=== PATIENT | female | born 1960 | race Hispanic/Latino ===

== ENCOUNTER 2018-11-14 15:48 | Inpatient (IN) | payer OTHER ==
--- NOTE | 2018-11-14 16:37 | ED PDOC ---
Arrival/HPI - General Chief Complaint: Palpitations Time Seen by Provider: 11/14/18 16:32 Historian: Patient - History of Present Illness Narrative History of Present Illness (Text): 11/14/18 16:35 58yo female with no significant pmhx who was referred to ED by her PMD for palpitation. Patient states she has been having palpitation intermittently for few weeks now and finally saw her PMD today who referred her to ED for further evaluation. Notes intermittent lightheadedness with the palpitation. Denies chest pain, SOB, diaphoresis, back pain, abdominal pain, nausea, vomiting, focal weakness, any other complaint. Past Medical History - Provider Review Nursing Documentation Reviewed: Yes - Psychiatric Hx Substance Use: No - Anesthesia Hx Anesthesia: No Hx Anesthesia Reactions: No Hx Malignant Hyperthermia: No Family/Social History - Physician Review Nursing Documentation Reviewed: Yes Family/Social History: Unknown Family HX Smoking Status: Never Smoked Hx Alcohol Use: No Hx Substance Use: No Allergies/Home Meds Allergies/Adverse Reactions: Allergies No Known Allergies Allergy (Verified 11/14/18 15:57) Review of Systems - Physician Review All systems were reviewed & negative as marked: Yes - Review of Systems Constitutional: Normal Eyes: Normal ENT: Normal Respiratory: Normal Cardiovascular: Palpitations. absent: Chest Pain Gastrointestinal: Normal Genitourinary Female: Normal Musculoskeletal: Normal Skin: Normal Neurological: Normal Endocrine: Normal Hemo/Lymphatic: Normal Psychiatric: Normal Physical Exam Vital Signs Reviewed: Yes Temperature: Afebrile Blood Pressure: Normal Pulse: Tachycardic Respiratory Rate: Normal Appearance: Positive for: Well-Appearing, Non-Toxic, Comfortable Pain Distress: None Mental Status: Positive for: Alert and Oriented X 3 - Systems Exam Head: Present: Atraumatic, Normocephalic Pupils: Present: PERRL Extroacular Muscles: Present: EOMI Conjunctiva: Present: Normal Mouth: Present: Moist Mucous Membranes Neck: Present: Normal Range of Motion Respiratory/Chest: Present: Clear to Auscultation, Good Air Exchange. No: Respiratory Distress, Accessory Muscle Use Cardiovascular: Present: Regular Rate and Rhythm, Normal S1, S2, Tachycardic. No: Murmurs, Irregular Rhythm, Peripheal Pulses Present Abdomen: No: Tenderness, Distention, Peritoneal Signs Back: Present: Normal Inspection Upper Extremity: Present: Normal Inspection. No: Cyanosis, Edema Lower Extremity: Present: Normal Inspection. No: Edema Neurological: Present: GCS=15, CN II-XII Intact, Speech Normal Skin: Present: Warm, Dry, Normal Color. No: Rashes Psychiatric: Present: Alert, Oriented x 3, Normal Insight, Normal Concentration Medical Decision Making ED Course and Treatment: 11/14/18 17:21 58yo female referred to ED by her PMD for palpitation x weeks. Labs EKG chest xray Chest IMPRESSION: No active disease. EKG Afib with PVC @ 145bpm 2nd EKG s/p Cardizem afib with PVC @ 87bpm Labs was reviewed and Troponin was 0.03. Leuk was noted without elevated WBC in her UA. This is incidental finding and pt does not have UTI symptoms. Will not treat for UTI at this time. ASA 325mg ordered 11/14/18 17:[address] Kemp and pt was admitted. He requested Dr. Gallardo consult. Result and plan was DW the pt and she agreed - Medication Orders Current Medication Orders: Diltiazem HCl (Cardizem) 20 mg IVP STAT STA Stop: 11/14/18 16:31 Disposition/Present on Arrival - Present on Arrival Any Indicators Present on Arrival: No History of DVT/PE: No History of Uncontrolled Diabetes: No Urinary Catheter: No History of Decub. Ulcer: No History Surgical Site Infection Following: None - Disposition Have Diagnosis and Disposition been Completed?: Yes Diagnosis: New onset a-fib Disposition: HOSPITALIZED Disposition Time: 17:30 Patient Plan: Admission Patient Problems: Current Active Problems Problem Status Onset New onset a-fib Acute Condition: FAIR Forms: [employer] (Welsh)
[2018-11-14 16:39] LABS: BASO # 0.06 K/mm3 (0.0-2.0); BASO % 0.7 % (0.0-3.0); EOS # 0.2 (0.0-0.7); GRAN # 5.17 (1.4-6.5); GRAN % 56.3 % (50.0-68.0); HEMOGLOBIN 13.9 g/dL (12.0-16.0); LYMPH # 3.2 (1.2-3.4); LYMPH % 34.5 % (22.0-35.0); MEAN CELL VOLUME 89.5 fl (80.0-105.0); MEAN CORPUSCULAR HEMOGLOBIN 29.3 pg (25.0-35.0); MEAN CORPUSCULAR HGB CONC 32.7 g/dl (31.0-37.0); MEAN PLATELET VOLUME 9.9 fl (7.0-11.0); MONO # 0.6 (0.1-0.6); MONO % 6.5 % (1.0-6.0); RBC 4.75 10^6/uL (3.5-6.1); RED CELL DISTRIBUTION WIDTH 13.3 % (11.5-14.5); WHITE BLOOD COUNT 9.2 10^3/uL (4.5-11.0)
[2018-11-14 16:41] LABS: URINE BILIRUBIN NEGATIVE (NEGATIVE); URINE BLOOD NEGATIVE (NEGATIVE); URINE GLUCOSE (UA) NEGATIVE (NEGATIVE); URINE LEUKOCYTE ESTERASE MODERATE Leu/uL (NEGATIVE); URINE PROTEIN NEGATIVE mg/dL (<30 mg/dL); URINE UROBILINOGEN 0.2 E.U./dL (<1 E.U./dL)
[2018-11-14 16:43] LABS: URINE APPEARANCE CLEAR (CLEAR); URINE COLOR YELLOW (YELLOW)
[2018-11-14 16:44] LABS: INR 0.85; PARTIAL THROMBOPLASTIN TIME 30.6 Seconds (25.1-36.5)
[2018-11-14 16:48] LABS: PROTHROMBIN TIME 9.7 SECONDS (9.4-12.5)
[2018-11-14 16:52] LABS: TROPONIN I 0.03 ng/mL
[2018-11-14 17:00] LABS: ALB/GLOB RATIO 1.5 (1.1-1.8); ALBUMIN 4.3 g/dL (3.0-4.8); ALT/SGPT 31 U/L (7-56); AST/SGOT 28 U/L (14-36); BLOOD UREA NITROGEN 22 mg/dL (7-21); GFR NON-AFRICAN AMERICAN 57
[2018-11-14 17:05] LABS: URINE BACTERIA SMALL /hpf
--- NOTE | 2018-11-14 17:14 | RAD ---
Date of service: 11/14/2018 HISTORY: admission COMPARISON: No prior. FINDINGS: LUNGS: No active pulmonary disease. PLEURA: No significant pleural effusion identified, no pneumothorax apparent. CARDIOVASCULAR: No atherosclerotic calcification present Cardiomegaly. No evidence of acute, significant cardiovascular disease. OSSEOUS STRUCTURES: No significant abnormalities.Incidental finding(s): Thoracolumbar scoliosis. VISUALIZED UPPER ABDOMEN: Normal. OTHER FINDINGS: None. IMPRESSION: No active disease.
[2018-11-14 17:42] LABS: FREE T4 0.97 ng/dL (0.78-2.19)
--- NOTE | 2018-11-14 19:46 | CARD ---
APPROVED REPORT Date of service: 11/14/2018 EKG Measurement Heart [id number] <Conclusion> Atrial fibrillation with premature ventricular or aberrantly conducted complexes Abnormal ECG
--- NOTE | 2018-11-14 19:49 | CARD ---
APPROVED REPORT Date of service: 11/14/2018 EKG Measurement Heart [id number] <Conclusion> Atrial fibrillation with rapid ventricular response Nonspecific T wave abnormality, probably digitalis effect Abnormal ECG
[2018-11-14] MEDS: Sodium Chloride 0.9% 1,000 ML IV SCH (21:01)
--- NOTE | 2018-11-14 21:36 | HP ---
DATE OF EXAM: 11/14/2018 HISTORY OF PRESENT ILLNESS: The patient is a 58-year-old white female currently in the emergency room in a 600 bed. She was seen in the office and sent to the emergency room for admission for probable atrial fibrillation with a heart rate of 140 beats per minute. The patient has been complaining of palpitation for several weeks. She has had no chest pain. No diaphoresis. No shortness of breath. Occasional periods of lightheadedness were the only complaints. PAST MEDICAL HISTORY: Unremarkable. FAMILY HISTORY: Noncontributory. SOCIAL HISTORY: Does not smoke or use alcoholic beverages. ALLERGIES: NO KNOWN ALLERGIES. REVIEW OF SYSTEMS: Entirely unremarkable except for the complaint of palpitations. PHYSICAL EXAMINATION: VITAL SIGNS: Currently pulse rate of 92 beats per minute, it essentially was 137 beats per minute. Her blood pressure is 113/73, respirations 18 breaths per minute with 98% O2 saturation on room air. HEENT: PERRLA, EOMI. No icterus is present. NECK: Supple with full range of motion. No JVD or bruits are appreciated. LUNGS: Clear to auscultation and percussion bilaterally. HEART: Irregularly irregular. No murmurs, rubs or gallops are appreciated. ABDOMEN: Soft. It is nontender. There is no organomegaly. Bowel sounds are normoactive. EXTREMITIES: Show no deformities or edema with a full range of motion of all extremities. NEUROLOGIC: The patient is intact. There are no focal motor deficits. LABORATORY DATA: WBC is entirely within normal limits with a hemoglobin of 13.9 and hematocrit of 42.5. Coag profile is normal. Chemistry is entirely within normal limits with the exception of a BUN of 22, TSH is 2.92 with a free T4 of 0.97. Urinalysis is normal with a possible urinary tract infection. IMPRESSION AND PLAN: At the time of admission is atrial fibrillation with rapid ventricular response. This has been controlled in the emergency room. Chest x-ray was perfectly normal. EKG, atrial fibrillation with premature ventricular contractions or aberrantly conducted complexes, heart rate 87. We will consult Dr. Chadd Gallardo. The patient is on a diltiazem drip. Continue current medicines. Jaron Kemp MD [facility] # [id number]
[2018-11-14] MEDS ORDERED: diltiaZEM IVPB 100mg in NS 100 ML IV PRN (21:53)
[2018-11-15] MEDS: Enoxaparin 80 mg Syringe SC SCH ×2 (01:23→10:36)
[2018-11-15 06:01] VITALS: O2SAT 99
[2018-11-15] MEDS: Sodium Chloride 0.9% 1,000 ML IV SCH (06:50)
[2018-11-15 07:51] LABS: BASO # 0.06 K/mm3 (0.0-2.0); BASO % 0.8 % (0.0-3.0); EOS # 0.3 (0.0-0.7); EOS % 3.9 % (1.5-5.0); GRAN # 3.09 (1.4-6.5); GRAN % 39.2 % (50.0-68.0); HEMOGLOBIN 12.4 g/dL (12.0-16.0); LYMPH # 3.9 (1.2-3.4); LYMPH % 48.9 % (22.0-35.0); MEAN CELL VOLUME 88.2 fl (80.0-105.0); MEAN CORPUSCULAR HEMOGLOBIN 28.8 pg (25.0-35.0); MEAN CORPUSCULAR HGB CONC 32.6 g/dl (31.0-37.0); MEAN PLATELET VOLUME 9.8 fl (7.0-11.0); MONO # 0.6 (0.1-0.6); MONO % 7.2 % (1.0-6.0); RBC 4.31 10^6/uL (3.5-6.1); RED CELL DISTRIBUTION WIDTH 13.2 % (11.5-14.5); WHITE BLOOD COUNT 7.9 10^3/uL (4.5-11.0)
[2018-11-15 08:41] LABS: ALB/GLOB RATIO 1.4 (1.1-1.8); ALBUMIN 3.5 g/dL (3.0-4.8); ALT/SGPT 24 U/L (7-56); AST/SGOT 23 U/L (14-36); BLOOD UREA NITROGEN 20 mg/dL (7-21); GFR NON-AFRICAN AMERICAN > 60
--- NOTE | 2018-11-15 08:52 | PN ---
SUBJECTIVE: The patient was seen and examined at bedside on the telemetry villar. No acute events overnight. She remains afebrile and hemodynamically stable. She denies chest pain or dyspnea, reports resolution of her palpitations and overall offers no complaints. OBJECTIVE: VITAL SIGNS: Temperature 97.9, pulse 81, blood pressure 94/56, respiratory rate 18, oxygen saturation 99% on room air. GENERAL: No apparent distress. HEENT: PERRL, EOMI. No scleral icterus. No conjunctival pallor. NECK: No JVD, no bruits. LUNGS: Clear to auscultation. CARDIOVASCULAR: Irregularly irregular. No murmurs, rubs or gallops. ABDOMEN: Normoactive bowel sounds. Soft, nontender, nondistended. EXTREMITIES: No edema. NEUROLOGIC: Awake, alert and oriented x 3. No focal motor deficits. LABORATORY DATA: CBC reviewed and unremarkable. CMP pending. Troponin 0.03 x 2 sets. TSH 2.92. ASSESSMENT: The patient is a 58-year-old woman with no significant past medical history who was sent to the ED by her PMD for evaluation of palpitations and was admitted to the telemetry villar for management of new-onset atrial fibrillation. PLAN: 1. Atrial fibrillation, new onset. The patient has been started on a Diltiazem drip and Sotalol 80 mg p.o. b.i.d. and remains rate-controlled. Evaluation with Dr. Gallardo is pending. An echocardiogram is pending. Her CHADS2-VASc score is 1 (for gender) and she remains on Lovenox. 2. Prophylaxis. GI prophylaxis not indicated as the patient is eating. DVT prophylaxis not indicated as the patient remains on Lovenox. CODE STATUS: Full code. Giovanny Kemp MD [facility]
--- NOTE | 2018-11-15 11:30 | CP.PCM.CON ---
History of Present Illness - History of Present Illness History of Present Illness: CONSULT for Dr. Chadd Gallardo Awake, alert, no distress Reason for consultation: Cardiac evaluation of new onset atrial fibrillation Brief history of present illness: A 58 year old female who came in to the ER due to palpitations. She claimed to be having the palpitations intermittently for the past few weeks. She saw her PMD yesterday and was referred to the ER for further evaluation. Denies any other medical problems. Seen and examined by me and Dr. Dias Review of Systems - Review of Systems All systems: reviewed and no additional remarkable complaints except Review of Systems: from HPI Past Patient History - Past Social History Smoking Status: Never Smoked - CARDIAC Hx Cardiac Disorders: No Hx Angina: No Hx Cardia Arrhythmia: No Hx Circulatory Problems: No Hx Congestive Heart Failure: No Hx Heart Murmur: No Hx Heart Transplant: No Hx Hypercholesterolemia: No Hx Hypertension: No Hx Internal Defibrillator: No Hx Mitral Valve Prolapse: No Hx Pacemaker: No Hx Peripheral Edema: No Hx Peripheral Vascular Disease: No - PULMONARY Hx Respiratory Disorders: No Hx Asthma: No Hx Bronchitis: No Hx Chronic Obstructive Pulmonary Disease (COPD): No Hx Emphysema: No Hx Pneumonia: No Hx Respiratory Aspiration: No Hx Respiratory Tract Infection: No Hx Sleep Apnea: No Hx Tuberculosis: No - NEUROLOGICAL Hx Neurological Disorder: No Hx Alzheimer's Disease: No HX Cerebrovascular Accident: No Hx Dementia: No Hx Dizziness: No Hx Meningitis: No Hx Migraine: No Hx Parkinson's Disease: No Hx Seizures: No Hx Transient Ischemic Attacks (TIA): No - HEENT Hx HEENT Problems: No Hx Blind: No Hx Cataracts: No Hx Deafness: No Hx Difficulty Chewing: No Hx Epistaxis: No Hx Glaucoma: No Hx Macular Degeneration: No - RENAL Hx Chronic Kidney Disease: No Hx Dialysis: No Hx Kidney Stones: No Hx Neurogenic Bladder: No Hx Pyelonephritis: No Hx Renal (Kidney) Cancer: No Hx Renal Failure: No - ENDOCRINE/METABOLIC Hx Endocrine Disorders: No Hx Adrenal Cancer: No Hx Diabetes Insipidus: No Hx Diabetes Mellitus Type 1: No Hx Diabetes Mellitus Type 2: No Hx Hyperthyroidism: No Hx Hypothyroidism: No Hx Systemic Lupus Erythematosus: No - HEMATOLOGICAL/ONCOLOGICAL Hx Blood Disorders: No Hx AIDS: No Hx Anemia: No Hx Cancer: No Hx Chemotherapy: No Hx Cirrhosis: No Hx Hemophilia: No Hx Hepatitis A: No Hx Hepatitis B: No Hx Hepatitis C: No Hx Human Immunodeficiency Virus (HIV): No Hx Metastesis: No Hx Shingles: No Hx Sickle Cell Disease: No Hx Unexplained Bleeding: No - INTEGUMENTARY Hx Dermatological Problems: No Hx Basil Cell: No Hx Eczema: No Hx Melanoma: No Hx Psoriasis: No Hx Squamous Cell: No - MUSCULOSKELETAL/RHEUMATOLOGICAL Hx Musculoskeletal Disorders: No Hx Arthritis: No Hx Back Pain: No Hx Degenerative Joint Disease: No Hx Falls: No Hx Fractures: No Hx Gout: No Hx Herniated Disk: No Hx Myasthenia Gravis: No Hx Osteoarthritis: No Hx Osteomyelitis: No Hx Osteoporosis: No Hx Rhabdomyolysis: No Hx Spinal Stenosis: No Hx Unsteady Gait: No - GASTROINTESTINAL Hx Gastrointestinal Disorders: No Hx Colostomy: No Hx Crohn's Disease: No Hx Diverticulitis: No Hx Gall Bladder Disease: No Hx Gastroesophageal Reflux: No Hx Ileostomy: No Hx Liver Failure: No Hx Pancreatitis: No HX Swallowing Problems: No Hx Ulcer: No - GENITOURINARY/GYNECOLOGICAL Hx Genitourinary Disorders: No Hx Hematuria: No Hx Incontinence: No Hx Sexually Transmitted Disorders: No Hx Urinary Tract Infection: No - PSYCHIATRIC Hx Psychophysiologic Disorder: No Hx Anxiety: No Hx Bipolar Disorder: No Hx Depression: No Hx Emotional Abuse: No Hx Hallucinations: No Hx Panic Symptoms: No Hx Paranoia: No Hx Post Traumatic Stress Disorder: No Hx Psychosis: No Hx Physical Abuse: No Hx Schizophrenia: No Hx Sexual Abuse: No Hx Substance Use: No - SURGICAL HISTORY Hx Surgeries: No Hx Amputation: No Hx Appendectomy: No Hx Cardiac Catheterization: No Hx Cholecystectomy: No Hx Coronary Stent: No Hx Gastric Bypass Surgery: No Hx Hysterectomy: No Hx Joint Replacement: No Hx Kidney Transplant: No Hx Liver Transplant: No Hx Mastectomy: No Hx Musculoskeletal Surgery: No Hx Open Heart Surgery: No Hx Orthopedic Surgery: No Hx Splenectomy: No Hx Valve Replacement: No - ANESTHESIA Hx Anesthesia: No Hx Anesthesia Reactions: No Hx Malignant Hyperthermia: No Meds Allergies/Adverse Reactions: Allergies Allergy/AdvReac Type Severity Reaction Status Date / Time No Known Allergies Allergy Verified 11/14/18 15:57 - Medications Medications: Current Medications Enoxaparin Sodium (Lovenox) 67 mg SC Q12H [facility]; Protocol Last Admin: 11/15/18 10:36 Dose: 67 mg Sodium Chloride (Sodium Chloride 0.9%) 1,000 mls @ 100 mls/hr IV .Q10H [facility] Last Admin: 11/15/18 06:50 Dose: Not Given diltiaZEM IVPB 100mg in NS (Cardizem 100mg In Ns) 100 mls @ 5 mls/hr IV .Q20H PRN; Protocol PRN Reason: TITRATE PER MD ORDER Sotalol HCl (Betapace) 80 mg PO BID [facility] Last Admin: 11/15/18 10:36 Dose: Not Given Physical Exam - Constitutional Appears: Non-toxic, No Acute Distress - Head Exam Head Exam: NORMAL INSPECTION, NORMOCEPHALIC - Eye Exam Eye Exam: Normal appearance Pupil Exam: NORMAL ACCOMODATION - ENT Exam ENT Exam: Mucous Membranes Moist, Normal Exam - Respiratory Exam Respiratory Exam: Clear to Auscultation Bilateral, NORMAL BREATHING PATTERN - Cardiovascular Exam Cardiovascular Exam: Irregular Rhythm, +S1, +S2 Additional comments: atrial fibrillation 90's - GI/Abdominal Exam GI & Abdominal Exam: Normal Bowel Sounds, Soft - Extremities Exam Extremities exam: Positive for: full ROM, normal capillary refill - Neurological Exam Neurological exam: Alert, Oriented x3 - Psychiatric Exam Psychiatric exam: Normal Affect, Normal Mood - Skin Skin Exam: Dry, Normal Color, Warm Results - Vital Signs Recent Vital Signs: Last Vital Signs Temp 97.9 F 11/15/18 06:00 Pulse 95 H 11/15/18 06:00 Resp 18 11/15/18 06:00 BP 94/56 L 11/15/18 06:00 Pulse Ox 99 11/15/18 06:00 - Labs Result Diagrams: 11/15/18 07:00 11/15/18 07:00 Labs: Laboratory Results - last 24 hr 11/14/18 11/14/18 11/14/18 16:25 16:25 16:25 WBC 9.2 RBC 4.75 Hgb 13.9 Hct 42.5 MCV 89.5 MCH 29.3 MCHC 32.7 RDW 13.3 Plt Count 316 MPV 9.9 Gran % 56.3 Lymph % (Auto) 34.5 [place] % (Auto) 6.5 H Eos % (Auto) 2.0 Baso % (Auto) 0.7 Gran # 5.17 Lymph # (Auto) 3.2 [place] # (Auto) 0.6 Eos # (Auto) 0.2 Baso # (Auto) 0.06 PT 9.7 INR 0.85 APTT 30.6 Sodium Potassium Chloride Carbon Dioxide Anion Gap BUN Creatinine Est GFR ( Amer) Est GFR (Non-Af Amer) Random Glucose Calcium Magnesium Total Bilirubin AST ALT Alkaline Phosphatase Lactate Dehydrogenase Total Creatine Kinase Troponin I Total Protein Albumin Globulin Albumin/Globulin Ratio Free T4 TSH 3rd Generation Urine Color Yellow Urine Appearance Clear Urine pH 6.0 Ur Specific [place] 1.015 Urine Protein Negative Urine Glucose (UA) Negative Urine Ketones Negative Urine Blood Negative Urine Nitrate Negative Urine Bilirubin Negative Urine Urobilinogen 0.2 Ur Leukocyte Esterase Moderate H Urine RBC 1 - 3 H Urine WBC 2 - 5 Ur Epithelial Cells 3 - 4 Urine Bacteria Small 11/14/18 11/14/18 11/15/18 16:25 17:13 00:10 WBC RBC Hgb Hct MCV MCH MCHC RDW Plt Count MPV Gran % Lymph % (Auto) [place] % (Auto) Eos % (Auto) Baso % (Auto) Gran # Lymph # (Auto) [place] # (Auto) Eos # (Auto) Baso # (Auto) PT INR APTT Sodium 143 Potassium 4.2 Chloride 105 Carbon Dioxide 30 Anion Gap 13 BUN 22 H Creatinine 1.0 Est GFR ( Amer) > 60 Est GFR (Non-Af Amer) 57 Random Glucose 104 Calcium 10.0 Magnesium Total Bilirubin 0.4 AST 28 ALT 31 Alkaline Phosphatase 81 Lactate Dehydrogenase 470 Total Creatine Kinase 61 Troponin I 0.03 0.03 Total Protein 7.2 Albumin 4.3 Globulin 2.8 Albumin/Globulin Ratio 1.5 Free T4 0.97 TSH 3rd Generation 2.92 Urine Color Urine Appearance Urine pH Ur Specific [place] Urine Protein Urine Glucose (UA) Urine Ketones Urine Blood Urine Nitrate Urine Bilirubin Urine Urobilinogen Ur Leukocyte Esterase Urine RBC Urine WBC Ur Epithelial Cells Urine Bacteria 11/15/18 11/15/18 07:00 07:00 WBC 7.9 RBC 4.31 Hgb 12.4 Hct 38.0 MCV 88.2 MCH 28.8 MCHC 32.6 RDW 13.2 Plt Count 270 MPV 9.8 Gran % 39.2 L Lymph % (Auto) 48.9 H [place] % (Auto) 7.2 H Eos % (Auto) 3.9 Baso % (Auto) 0.8 Gran # 3.09 Lymph # (Auto) 3.9 H [place] # (Auto) 0.6 Eos # (Auto) 0.3 Baso # (Auto) 0.06 PT INR APTT Sodium 143 Potassium 3.9 Chloride 110 H Carbon Dioxide 26 Anion Gap 11 BUN 20 Creatinine 0.8 Est GFR ( Amer) > 60 Est GFR (Non-Af Amer) > 60 Random Glucose 95 Calcium 9.0 Magnesium 1.9 Total Bilirubin 0.5 AST 23 ALT 24 Alkaline Phosphatase 62 Lactate Dehydrogenase Total Creatine Kinase Troponin I Total Protein 6.1 Albumin 3.5 Globulin 2.6 Albumin/Globulin Ratio 1.4 Free T4 TSH 3rd Generation Urine Color Urine Appearance Urine pH Ur Specific [place] Urine Protein Urine Glucose (UA) Urine Ketones Urine Blood Urine Nitrate Urine Bilirubin Urine Urobilinogen Ur Leukocyte Esterase Urine RBC Urine WBC Ur Epithelial Cells Urine Bacteria Assessment & Plan - Assessment and Plan (Free Text) Assessment: A 58 year old female who came in to the ER due to palpitations. She claimed to be having the palpitations intermittently for the past few weeks. She saw her PMD yesterday and was referred to the ER for further evaluation. Denies any other medical problems. Dr. Gallardo was called and ordered Cardizem drip at 5 mg /hr however it was not started as systolic blood pressure on the 90's as per RN. Sotalol was started. Will discontinue Cardizem drip and switch to oral. Troponin 0.03 x 2. normal .TSH-normal. Denies chest pain, denies shortness of breath. Echo to evaluate LV function.For stress test . No previous cardiac work up at [facility]. Plan: No distress Systolic Blood pressure on the 90's Cardizem drip order discontinued and switch to oral Switch Lovenox to Eliquis for anticoagulation On Lovenox 67 mg every 12 hours, Sotalol 80 mg BID For echo to evaluate LV function Continue current treatment Continue current medications Lipid profile and HgbA1C Will follow up Further recommendations during hospital course Plan and treatment discussed with Dr. Dias Thank you Dr. Kemp for the opportunity of taking care of Mckenna Cesar for Dr. Gallardo - Date & Time Date: 11/15/18 Time: 06:30
--- NOTE | 2018-11-15 19:42 | CON ---
DATE: 11/15/2018 LOCATION: The patient is in room 268, bed 2. This consult is being done on behalf of Dr. Gallardo who I am covering. Detailed consult has been already dictated by Valeria Martin. This is an additional note pertaining to the same consult. The patient admitted with history of palpitation, found to have atrial fibrillation, rapid ventricular rate. The patient denied any chest pain or shortness of breath. The patient was started on Cardizem drip and Lovenox and sotalol 80 mg b.i.d. The patient now is asymptomatic. PHYSICAL EXAMINATION: LUNGS: Clear. CARDIOPULMONARY: S1 and S2. ABDOMEN: Soft. Nontender. No organomegaly. LABORATORY DATA: Troponin x2 is negative. TSH 2.92. Electrolytes and BUN are normal. Random glucose 104 and 95. EKG showed atrial fibrillation and rapid rate, nonspecific ST-T changes. DIAGNOSIS: Atrial fibrillation, new onset. PLAN: The patient's troponin is negative and we will switch Lovenox to Eliquis 5 mg b.i.d. We will continue sotalol 80 mg b.i.d. With the Cardizem drip, the patient's blood pressure was low, so now we are switching to 30 mg p.o. t.i.d. instead of IV because the heart rate has come down. We will continue to follow closely with you. Echo done today, we will follow that report. Meseret Dias MD
--- NOTE | 2018-11-15 20:40 | CARD ---
APPROVED REPORT Date of service: 11/15/2018 EXAM: Two-dimensional and M-mode echocardiogram with Doppler and color Doppler. INDICATION Atrial Fibrillation 2D DIMENSIONS Left Atrium (2D)4.1 (1.6-4.0cm)IVSd1.1 (0.7-1.1cm) Aortic Root (2D)2.7 (2.0-3.7cm)LVDd3.8 (3.9-5.9cm) PWd1.0 (0.7-1.1cm)LVDs2.6 (2.5-4.0cm) FS (%) 31.1 %LVEF (%)59.4 (>50%) M-Mode DIMENSIONS Aortic Cusp Exc.2.00 (1.5-2.0cm) Pulmonary Valve PV Peak Jcwwnhss34.1cm/sPV Peak Grad.3mmHg Tricuspid Valve TR Peak [id number]/sRAP [id number] Peak Gr.11mmHg [id number] LEFT VENTRICLE The left ventricle is normal size. There is normal left ventricular wall thickness. The left ventricular ejection fraction is within the normal range. RIGHT VENTRICLE The right ventricle is normal size. There is normal right ventricular wall thickness. Systolic function is borderline reduced. ATRIA The left atrium is mildly dilated. The right atrium size is normal. AORTIC VALVE The aortic valve is normal in structure. No aortic regurgitation is present. There is no aortic valvular stenosis. MITRAL VALVE The mitral valve is normal in structure. Mitral regurgitation is mild. There is no mitral valve stenosis. TRICUSPID VALVE The tricuspid valve is normal in structure. There is mild tricuspid regurgitation. PULMONIC VALVE The pulmonary valve is normal in structure. There is no pulmonic valvular regurgitation. GREAT VESSELS The aortic root is normal in size. PERICARDIAL EFFUSION There is a trace pericardial effusion. <Conclusion> There is normal left ventricular wall thickness. The left ventricular ejection fraction is within the normal range. The left atrium is mildly dilated. Mitral regurgitation is mild. There is mild tricuspid regurgitation. There is a trace pericardial effusion.
[2018-11-16 07:11] LABS: BASO # 0.04 K/mm3 (0.0-2.0); BASO % 0.6 % (0.0-3.0); EOS # 0.3 (0.0-0.7); EOS % 4.3 % (1.5-5.0); GRAN # 3.03 (1.4-6.5); GRAN % 42.9 % (50.0-68.0); HEMOGLOBIN 12.2 g/dL (12.0-16.0); LYMPH # 2.9 (1.2-3.4); LYMPH % 41.1 % (22.0-35.0); MEAN CELL VOLUME 89.4 fl (80.0-105.0); MEAN CORPUSCULAR HEMOGLOBIN 28.8 pg (25.0-35.0); MEAN CORPUSCULAR HGB CONC 32.2 g/dl (31.0-37.0); MEAN PLATELET VOLUME 9.9 fl (7.0-11.0); MONO # 0.8 (0.1-0.6); MONO % 11.1 % (1.0-6.0); RBC 4.24 10^6/uL (3.5-6.1); RED CELL DISTRIBUTION WIDTH 13.4 % (11.5-14.5)
[2018-11-16 07:43] LABS: ALB/GLOB RATIO 1.4 (1.1-1.8); ALBUMIN 3.6 g/dL (3.0-4.8); ALT/SGPT 34 U/L (7-56); AST/SGOT 21 U/L (14-36); BLOOD UREA NITROGEN 27 mg/dL (7-21); CALCIUM 9.1 mg/dL (8.4-10.5); GFR NON-AFRICAN AMERICAN > 60; HDL CHOLESTEROL 65 mg/dL (29-60)
[2018-11-16 07:48] LABS: LDL CHOLESTEROL 118 mg/dL (0-129)
--- NOTE | 2018-11-16 08:04 | CP.PCM.PN ---
Subjective - Date & Time of Evaluation Date of Evaluation: 11/16/18 Time of Evaluation: 06:25 - Subjective Subjective: Covering for Dr. Chadd Gallardo Easily awaken , alert, no distress Reason for consultation: Cardiac evaluation of new onset atrial fibrillation. Admitted for palpitations Seen and examined by me and Dr. Dias Objective - Vital Signs/Intake and Output Vital Signs (last 24 hours): Temp Pulse Resp BP Pulse Ox 97.9 F 79 20 119/67 99 11/16/18 06:00 11/16/18 06:17 11/16/18 06:00 11/16/18 06:17 11/16/18 06:00 Intake and Output: 11/16/18 11/16/18 06:59 18:59 Intake Total 480 Balance 480 - Medications Medications: Current Medications Apixaban (Eliquis) 5 mg PO BID [facility]; Protocol Last Admin: 11/15/18 17:26 Dose: 5 mg Diltiazem HCl (Cardizem) 30 mg PO Q8 [facility] Last Admin: 11/16/18 06:17 Dose: 30 mg - Labs Labs: 11/16/18 06:30 11/16/18 06:30 PT 9.7 SECONDS (9.4-12.5) 11/14/18 16:25 INR 0.85 11/14/18 16:25 APTT 30.6 Seconds (25.1-36.5) 11/14/18 16:25 - Constitutional Appears: Non-toxic, No Acute Distress - Head Exam Head Exam: NORMAL INSPECTION, NORMOCEPHALIC - Eye Exam Eye Exam: Normal appearance Pupil Exam: NORMAL ACCOMODATION - ENT Exam ENT Exam: Mucous Membranes Moist, Normal Exam - Respiratory Exam Respiratory Exam: Clear to Ausculation Bilateral, NORMAL BREATHING PATTERN - Cardiovascular Exam Cardiovascular Exam: Bradycardia, +S1, +S2 Additional comments: Telemetry SB at 50's - GI/Abdominal Exam GI & Abdominal Exam: Soft, Normal Bowel Sounds - Extremities Exam Extremities Exam: Full ROM, Normal Capillary Refill - Neurological Exam Neurological Exam: Alert, Awake, Oriented x3 - Psychiatric Exam Psychiatric exam: Normal Affect, Normal Mood - Skin Skin Exam: Dry, Normal Color, Warm Assessment and Plan - Assessment and Plan (Free Text) Assessment: A 58 year old female who came in to the ER due to palpitations. She claimed to be having the palpitations intermittently for the past few weeks. She saw her PMD yesterday and was referred to the ER for further evaluation. Denies any other medical problems. Dr. Gallardo was called and ordered Cardizem drip at 5 mg /hr however it was not started as systolic blood pressure on the 90's as per RN. On Sotalol. Discontinued Cardizem drip and switched to oral. Troponin 0.03 x 2. normal .TSH-normal. Denies chest pain, denies shortness of breath. Echo done. [place] [facility] [place] Atrial fibrillation converted to normal sinus rhythm. Started on Eliquis. Plan: Echo done-LVEF 59%, mild MR/TR, mildly dilated atrium No distress, denies palpitation Atrial fibrillation converted to normal sinus rhythm Blood pressure stable On Eliquis for anticoagulation Sotalol 80 mg BID. Eliquis 5 mg BID, Cardizem 30 mg TID Continue current treatment Continue current medications Will follow up Plan and treatment discussed with Dr. Dias Covering for Dr. Gallardo
[2018-11-16] MEDS ORDERED: Pneumococcal 23-Valent Vaccine IM ONE (13:13)
[2018-11-16 13:26] VITALS: BP 121/65; PULSE 63; RESP 21; TEMP 97
--- NOTE | 2018-11-16 15:03 | PN ---
DATE: 11/16/2018 LOCATION: The patient is in room 268, bed 2. We saw this patient is covering Dr. Gallardo, also detail note has been written by Mario Nguyễn. This is additional note. The patient was admitted with atrial fibrillation new onset with complaints of palpitation. The patient now converted to sinus rhythm. She denies any chest pain, shortness of breath or palpitation. Echo showed LV ejection fraction 59%, mild MR, mild TR, mildly dilated left atrium. PLAN: The patient also on b.i.d., Eliquis 5 twice daily, Cardizem 30 three times daily. We will continue present therapy and even the patient stays in sinus, we will keep anticoagulation for [address] Gallardo will follow up patient starting tomorrow. Meseret Dias MD
--- NOTE | 2018-11-16 19:57 | PN ---
SUBJECTIVE: The patient was seen and examined at the bedside on the telemetry villar. No acute events overnight. She remains afebrile, hemodynamically stable and with resolution of her presenting symptoms. This morning she feels great and is looking forward to going home. OBJECTIVE: VITAL SIGNS: Temperature 97, pulse 63, blood pressure 121/65, respiratory rate 20, and oxygen saturation 100% on room air. GENERAL: No apparent distress. HEENT: PERRL, EOMI. No scleral icterus. No conjunctival pallor. NECK: No JVD. No bruits. LUNGS: Clear to auscultation. CARDIOVASCULAR: Regular rate and rhythm. Normal S1 and S2. No murmurs, rubs or gallops. ABDOMEN: Normoactive bowel sounds, soft, nontender, and nondistended. EXTREMITIES: No edema. NEUROLOGIC: Awake, alert, and oriented x 3. No focal motor deficits. LABORATORY DATA: CBC reviewed and unremarkable. CMP reviewed and unremarkable. DIAGNOSTIC STUDIES: TTE demonstrated normal LV size and function with no significant valvular abnormalities. ASSESSMENT: The patient is a 58-year-old woman with no significant past medical history who was sent to the ED by her PMD for evaluation of palpitations and was admitted to the telemetry villar for management of new-onset atrial fibrillation. PLAN: 1. Atrial fibrillation, new onset. Input from Dr. Dias noted and appreciated and the patient has converted to normal sinus rhythm. She will be discharged on Sotalol 80 mg p.o. b.i.d. and Eliquis 5 mg p.o. b.i.d. She will follow with Dr. Gallardo on an outpatient basis. 2. Prophylaxis. GI prophylaxis is not indicated as the patient is eating. DVT prophylaxis is not indicated as the patient remains on Eliquis. CODE STATUS: Full code. Giovanny Kemp MD MTDD
--- NOTE | 2018-11-17 01:20 | DS ---
ADMITTING DIAGNOSIS: Atrial fibrillation (new onset). DISCHARGE DIAGNOSIS: Atrial fibrillation. SECONDARY DIAGNOSIS: None. CONSULTATIONS: Dr. Dias (Cardiology). PROCEDURES: None. IMAGING STUDIES: Chest x-ray demonstrated no acute pathology. DIAGNOSTIC STUDIES: TTE demonstrated normal LV size and function with no major valvular abnormalities. HISTORY OF PRESENT ILLNESS: The patient is a 58-year-old woman with no significant past medical history who was sent to the ED by her PMD for evaluation of a several day history of palpitations. The patient reported associated lightheadedness but denied chest pain, diaphoresis, dyspnea, pedal edema, paroxysmal nocturnal dyspnea or orthopnea associated with her symptoms. Examination in the ED found her to be in atrial fibrillation at a rate of 140 beats per minute. She was started on a Cardizem infusion and admitted to the telemetry villar for continued workup and management of new-onset atrial fibrillation. HOSPITAL COURSE: Upon admission to the telemetry villar she was evaluated by Dr. Dias of Cardiology. She was started on Sotalol 80 mg p.o. b.i.d. and Cardizem 30 mg p.o. t.i.d., in addition to Eliquis 5 mg p.o. b.i.d. for anticoagulation. Her laboratory studies were largely unremarkable, including 3 negative sets of cardiac enzymes. She also underwent an echocardiogram with findings as described above. Over the following 24 hours she converted to a normal sinus rhythm and remained asymptomatic during the duration of her hospital stay. On hospital day #3 she was deemed stable for discharge home. CONDITION: Good, improved. DISPOSITION: Home. DISCHARGE MEDICATIONS: Sotalol 80 mg p.o. b.i.d. and Eliquis 5 mg p.o. b.i.d. DISCHARGE INSTRUCTIONS: The patient was advised if she has any recurrence of her symptoms to present to her PMD or to the nearest ED immediately. She was also extensively counseled on the increased risk of bleeding while on anticoagulation therapy. FOLLOWUP: The patient is to follow up with her PMD within 1 week of discharge. The patient to follow up with Dr. Gallardo as scheduled. Giovanny Kemp MD [facility] # [id number] [place]
== END 2018-11-16 14:12 | disposition home or self-care (01) | DRG 310 ==
LOC: ED 15:48 → ERH 17:28 → 2RNO 11-15 01:56
PROVIDERS: ADMIT Internal Medicine; ATTEND Internal Medicine
PROC: 3E0234Z Introduction of Serum, Toxoid and Vaccine into Muscle, Percutaneous Approach (ICD-10-PCS; principal; 2018-11-16)
DX: I48.91 Unspecified atrial fibrillation (principal); I49.3 Ventricular premature depolarization; Z23 Encounter for immunization